=== PATIENT | female | born 1995 | race Hispanic/Latino ===

== ENCOUNTER 2023-04-10 02:00 | Inpatient (IN) | payer BC, OTHER ==
[2023-04-10] MEDS ORDERED: hydrALAZINE 20 MG/ML VIAL SLOW IVP PRN ×2 (02:42→03:20)
[2023-04-10] MEDS ORDERED: Carboprost 250 MCG/ML AMP IM PRN (02:42)
[2023-04-10] MEDS ORDERED: Lidocaine 1% (PF) 30 ML VIAL ONE (02:42)
[2023-04-10] MEDS ORDERED: fentaNYL 50 mcg/mL 1 mL Vial SLOW IVP PRN (02:42)
[2023-04-10] MEDS ORDERED: HYDROcodone/Acetaminophen 5/325 mg Tablet PO PRN ×2 (02:42)
[2023-04-10] MEDS ORDERED: Lidocaine 1% (PF) 30 ML VIAL SC PRN (02:42)
[2023-04-10] MEDS ORDERED: NS w/ Oxytocin 30 units 500 ML ONE (02:42)
[2023-04-10] MEDS ORDERED: Methylergonovine 0.2 MG/ML VIAL IM PRN (02:42)
[2023-04-10] MEDS ORDERED: Ibuprofen 800 MG TAB PO PRN (02:42)
[2023-04-10] MEDS ORDERED: Misoprostol 200 MCG TAB PR PRN (02:42)
[2023-04-10] MEDS ORDERED: Promethazine HCl 25 MG/ML VIAL IM PRN (02:42)
[2023-04-10] MEDS ORDERED: Diphenoxylate HCl/Atropine Tablet PO PRN (02:42)
[2023-04-10] MEDS ORDERED: Ondansetron PF 4 MG/2 ML Vial IVP PRN (02:42)
[2023-04-10] MEDS ORDERED: Acetaminophen 500 MG TAB PO PRN (02:42)
[2023-04-10] MEDS ORDERED: NS w/ Oxytocin 30 units 500 ML IV SCH ×2 (02:45)
[2023-04-10] MEDS ORDERED: Lactated Ringer's 1,000 ML IV SCH (02:45)
[2023-04-10 03:06] LABS: Hematocrit 34.9 % (34.9-44.5); Hemoglobin 12.4 g/dL (12.0-15.5); Mean Corpuscular HGB CONC 35.5 g/dL (32.0-36.0); Mean Corpuscular Hemoglobin 30.2 pg (27.0-33.0); Mean Corpuscular Volume 84.9 fl (81.6-98.3); Platelet Count 231 10x3/uL (150-450); Red Blood Cell (RBC) Count 4.11 10x6/uL (3.90-5.03); White Blood Cell (WBC) Count 11.1 10x3/uL (3.5-10.5)
[2023-04-10 03:17] VITALS: BMI 28.1
[2023-04-10] MEDS ORDERED: Boostrix 0.5 ML (Tdap) VIAL (>/=7 yrs of age) IM ONE (03:20)
[2023-04-10] MEDS ORDERED: Lanolin Ointment 7 GM TUBE TOP PRN (03:20)
[2023-04-10] MEDS ORDERED: Preparation H Ointment 28 GM TUBE PR PRN (03:20)
[2023-04-10] MEDS ORDERED: Bisacodyl 10 MG SUPP PR PRN (03:20)
[2023-04-10] MEDS ORDERED: diphenhydrAMINE 25 MG CAP PO PRN (03:20)
[2023-04-10] MEDS ORDERED: traMADol HCl 50 MG TAB PO PRN (03:20)
[2023-04-10] MEDS ORDERED: Milk Of Magnesia 30 ML UDCUP PO PRN (03:20)
[2023-04-10] MEDS ORDERED: Benzocaine-Menthol 82.5 ML CAN TOP PRN (03:20)
[2023-04-10 03:30] LABS: Hep B Surf Ag - L&D Non-Reactive S/CO (NonReactive)
[2023-04-10 03:32] LABS: Syphilis Antibody Nonreactive (Nonreactive); Syphilis Antibody Index 0.06 S/CO (<1.00 Non-Reactive)
[2023-04-10] MEDS: Ibuprofen 800 MG TAB PO SCH ×3 (06:21→21:12)
[2023-04-10] MEDS: Docusate 100 MG CAP PO SCH ×2 (09:27→21:12)
[2023-04-10] MEDS: Prenatal Vitamin 1 TAB PO SCH (09:27)
[2023-04-10] MEDS: traMADol HCl 50 MG TAB PO PRN ×2 (09:28→23:48)
[2023-04-10] MEDS: Ferrous Sulfate 325 MG TAB PO SCH ×2 (09:31→20:14)
[2023-04-11] MEDS: Ibuprofen 800 MG TAB PO SCH ×2 (05:57→14:41)
[2023-04-11 08:55] VITALS: BP 112/66; TEMP 98.7
[2023-04-11] MEDS: Docusate 100 MG CAP PO SCH (09:45)
[2023-04-11] MEDS: Prenatal Vitamin 1 TAB PO SCH (09:45)
== END 2023-04-11 19:55 | disposition home or self-care (01) | DRG 807 ==
LOC: CSHLD/OP 02:00 → CSHLD 02:37 → CSHPP 06:05
PROVIDERS: ADMIT Obstetrics & Gynecology; ATTEND Obstetrics & Gynecology
PROC: 10E0XZZ Delivery of Products of Conception, External Approach (ICD-10-PCS; principal; 2023-04-10)
PROC: 0KQM0ZZ Repair Perineum Muscle, Open Approach (ICD-10-PCS; 2023-04-10)
DX: O24.420 Gestational diabetes mellitus in childbirth, diet controlled (principal); Z37.0 Single live birth; Z3A.38 38 weeks gestation of pregnancy; O70.1 Second degree perineal laceration during delivery
CPT/HCPCS: 85027; 86780; 86850; 86900; 86901; 87340; 99285